=== PATIENT | female | born 1970 | race African-American/Black ===

== ENCOUNTER 2020-07-25 19:50 | Emergency (ER) | payer BC, MEDICAID, OTHER ==
[~2020-07-25] VITALS: Ht 170.2 cm; Wt 82.0 kg
[2020-07-25] MEDS ORDERED: DIAZEPAM 5 MG/ML 2ML CPJ IM ONE (21:00)
[2020-07-25] MEDS ORDERED: DIPHENHYDRAMINE 50MG/ML VIAL IM ONE (21:00)
[2020-07-25] MEDS ORDERED: KETOROLAC 60MG/2ML VIAL IM ONE (22:45)
[2020-07-26] VITALS: BP 153/95
== END 2020-07-26 00:27 | disposition home or self-care (01) ==
LOC: ER 19:50
DX: S03.03XA Dislocation of jaw, bilateral, initial encounter (principal); X58.XXXA Exposure to other specified factors, initial encounter; Y93.89 Activity, other specified; Y92.89 Other specified places as the place of occurrence of the external cause
CPT/HCPCS: 21480; 70110; 96372; 99284; J1200; J1885; J3360